=== PATIENT | female | born 1995 | race Caucasian/White ===

== ENCOUNTER 2016-12-06 09:16 | Emergency (ER) | payer OTHER ==
[~2016-12-06] VITALS: Ht 154.9 cm; Wt 62.0 kg
[2016-12-06 09:21] VITALS: Ht 154.9 cm; Wt 62.0 kg
[2016-12-06] MEDS ORDERED: HYDR-902 PO (09:45)
[2016-12-06] MEDS ORDERED: IBUP800T25 PO (09:45)
--- NOTE | 2016-12-06 09:47 | ERD ---
ER Documentation Chief Complaint Date/Time DATE: 12/06/16 TIME: 09:46 Chief Complaint pt bib self with c/o sore throat starting a few days ago, no resp distress HPI This a 21-year-old female complains of sore throat onset yesterday with subjective fever. She has pain with swelling is described as sharp no loss of voice, no difficulty swallowing secretions or speaking. No headache or rash ROS All systems reviewed and are negative except as per history of present illness. Medications Home Meds Active Scripts Ibuprofen* (Motrin*) 800 Mg Tab, 800 MG PO Q6H Y for PAIN AND OR ELEVATED TEMP, #30 TAB Prov:LEKKOS,APOSTOLOS A. DO 12/06/16 Hydrocodone/Acetaminophen (Greene 10-325 Tablet) 1 Each Tablet, 1 TAB PO Q6H Y for PAIN, #20 TAB Prov:LEKKOS,APOSTOLOS A. DO 12/06/16 Allergies Allergies: Coded Allergies: No Known Allergy (Unverified , 12/06/16) FmHx Family History: No coronary disease Physical Exam Vitals Vital Signs Date Time Temp Pulse Resp B/P Pulse Ox O2 Delivery O2 Flow Rate FiO2 12/06/16 09:21 99.9 114 18 125/70 99 Physical Exam Const: Well-developed, well-nourished Head: Atraumatic, normocephalic Eyes: Normal Conjunctiva, PERRLA, EOMI, normal sclera, no nystagmus ENT: Normal External Ears, Nose and Mouth, moist mucus membranes, bilateral tonsillar erythema with peritonsillar erythema with tonsillar exudate. Neck: Full range of motion. No meningismus, no lymphadenopathy. Resp: Clear to auscultation bilaterally, no wheezing, rhonchi, rales Cardio: Regular rate and rhythm, no murmurs, S1 S2 present Abd: Soft, non tender x 4, non distended. Normal bowel sounds, no guarding or rebound, no pulsitile abdominal masses or bruits Skin: No petechiae or rashes, no ecchymosis , no maculopapular rash Back: No midline or flank tenderness Ext: No cyanosis, or edema, FROM x 4, normal inspection, neurovascularly intact x 4 Neur: Awake and alert, STR 5/5 x 4, sensation intact x 4, no focal findings, cerebellum intact Psych: Normal Mood and Affect Results 24 hrs Current Medications Medications (Trade) Dose Ordered Sig/Andrew Route PRN Reason Start Time Stop Time Status Last Admin Dose Admin Penicillin G Benzathine (Bicillin La) 1,200,000 units ONCE ONCE IM 12/06/16 10:00 12/06/16 10:01 Lidocaine (Xylocaine 1% (Mdv) 20 ml) 1 ml ONCE ONCE IM 12/06/16 10:00 12/06/16 10:01 Procedures/MDM We will give Bicillin 1.2 million LA IM Departure Diagnosis: Primary Impression: Pharyngitis Pharyngitis/tonsillitis etiology: unspecified etiology Qualified Code: J02.9 - Pharyngitis, unspecified etiology Condition: Stable Patient Instructions: Pharyngitis, Strep (Presumed) KELLIE LI DO Dec 06, 2016 09:46
[2016-12-06] MEDS ORDERED: LIDOCAINE 1% (MDV) 20 ML INJ IM ONE (10:00)
[2016-12-06] MEDS ORDERED: PENICILLIN G BENZ 1.2 MIL UNIT SYG IM ONE (10:00)
== END 2016-12-06 10:34 | disposition home or self-care (01) ==
LOC: FTE 09:16
DX: J02.9 Acute pharyngitis, unspecified (principal)
CPT/HCPCS: 96372; J0561; Z7502; Z7610